=== PATIENT | male | born 2000 | race Two or more races ===

== ENCOUNTER 2020-11-10 22:16 | Emergency (ER) | payer BC ==
[~2020-11-10] VITALS: Ht 175.3 cm; Wt 115.2 kg
[2020-11-10 22:35] VITALS: BP 143/81
--- NOTE | 2020-11-10 22:39 | PHYS DOC ---
Past History Past Medical History: Bronchitis General Adult EDM: Chief Complaint: SHORTNESS OF BREATH HPI: HPI: ". I ve .. Been having this nonproductive cough for last couple weeks... 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 Pt.[employer] student on scholarship for [employer]. History of heavy tobacco and marijuana use. Recent travel from [place] to go to [place] here at [place]. Patient does have history of Covid infection in June. No history of trauma. No history of fever or chills. Patient reports that cough has been nonproductive. Has had some burning and chest after coughing episodes. No specific ill contacts. Has recently been attempting to reduce his intake of marijuana and tobacco use. Review of Systems: Review of Systems: Constitutional: Denies fever or chills Eyes: Denies change in visual acuity HENT: Denies nasal congestion or sore throat Respiratory: History of cough and wheezing Cardiovascular: Denies chest pain or edema GI: Denies abdominal pain, nausea, vomiting, bloody stools or diarrhea : Denies dysuria Musculoskeletal: Denies back pain or joint pain Integument: Denies rash Neurologic: Denies headache, focal weakness or sensory changes Endocrine: Denies polyuria or polydipsia Lymphatic: Denies swollen glands Psychiatric: Denies depression or anxiety Family History: Family History: Noncontributory to presentation Current Medications: Current Meds: See nursing for home meds Allergies: Allergies: Allergies Coded Allergies Type Severity Reaction Last Updated Verified No Known Drug Allergies 11/10/20 No Physical Exam: PE: Constitutional: Well developed, well nourished, no acute distress, non-toxic appearance. [] HENT: Normocephalic, atraumatic, bilateral external ears normal, oropharynx moist, mild postnasal drainage, no oral exudates, nose slightly swollen turbinates and clear rhinorrhea Eyes: PERRLA, EOMI, conjunctiva normal, no discharge. [] Neck: Normal range of motion, no tenderness, supple, no stridor. [] Cardiovascular:Heart rate regular rhythm, no murmur [] Bed side monitor shows a normal sinus rhythm Lungs & Thorax: Bilateral breath sounds equal apex with few scattered wheezes on auscultation [] Pt. has prominent breast development. Abdomen: Bowel sounds normal, soft, no tenderness, no masses, no pulsatile masses. [] Skin: Warm, dry, no erythema, no rash. Cap refill less than 2 seconds in fingers Back: No tenderness, no CVA tenderness. [] Extremities: No tenderness, no cyanosis, no clubbing, ROM intact, no edema. [] No cording appreciated Neurologic: Alert and oriented X 3, normal motor function, normal sensory function, no focal deficits noted. [] Psychologic: Affect anxious, judgement normal, mood normal. [] EKG: EKG: [] Radiology/Procedures: Radiology/Procedures: [][address] [address] IMAGING REPORT Signed PATIENT: KENJI LONG ACCOUNT: [id number] : 2000 LOCATION: ER AGE: 20 SEX: M EXAM STATUS: REG ER ORD. PHYSICIAN: ANGEL GAMEZ MD REASON: cough, dyspnea PROCEDURE: CHEST PA & LATERAL INDICATION: Reason: cough, dyspnea / Spl. Instructions: / History: COMPARISON: None. FINDINGS: 2 view of chest obtained. Mild degenerative changes the spine. Cardiac silhouette is unremarkable. No definite focal airspace consolidation. IMPRESSION: * No focal airspace consolidation or edema. Electronically signed by: Luz Judge MD (11/10/2020 11:13 PM) [id number] DICTATED AND SIGNED BY: LUZ JUDGE MD DATE: 11/10/20 4554 CC: ANGEL GAMEZ MD; PCP,NO ~MTH0 0 Heart Score: C/O Chest Pain: N/A HEART Score for Chest Pain: HEART Score for Chest Pain Response (Comments) Value History Slighlty/Non-Suspicious 0 ECG Normal 0 Age < 45 0 Risk Factors 1 or 2 Risk Factors 1 Total 1 Risk Factors: Risk Factors: DM, Current or recent (<one month) smoker, HTN, HLP, family history of CAD, obesity. Risk Scores: Score 0 - 3: 2.5% MACE over next 6 weeks - Discharge Home Score 4 - 6: 20.3% MACE over next 6 weeks - Admit for Clinical Observation Score 7 - 10: 72.7% MACE over next 6 weeks - Early Invasive Strategies Course & Med Decision Making: Course & Med Decision Making Pertinent Labs and Imaging studies reviewed. (See chart for details) Take prednisone 50 mg a day. Use MDI 2 puffs 4 times a day. Take Zithromax 250 a day. Follow-up primary care. Return for concerns. Patient encouraged to stop smoking both tobacco and marijuana if not for his health for the health of the significant other. Did recommend he get Covid vaccination in spite of his infection in June. Impression: 1. Bronchitis 2. Tobacco and Marijuana use. [] Dragon Disclaimer: Dragon Disclaimer: This electronic medical record was generated, in whole or in part, using a voice recognition dictation system. Departure Departure: Referrals: PCP,NO (PCP) Scripts Azithromycin (ZITHROMAX) 250 Mg Tablet 250 MG PO DAILY for ANTI-BIOTIC for 5 Days, #5 TAB 0 Refills Prov: ANGEL GAMEZ MD 11/10/20 Prednisone (PREDNISONE) 50 Mg Tablet 50 MG PO DAILY for reactive airway for 5 Days, #5 TAB Prov: ANGEL GAMEZ MD 11/10/20 Dragon Disclaimer This chart was dictated in whole or in part using Voice Recognition software in a busy, high-work load, and often noisy Emergency Department environment. It may contain unintended and wholly unrecognized errors or omissions. ANGEL GAMEZ MD November 10, 2020 22:39
[2020-11-10] MEDS ORDERED: predniSONE 10 MG TABLET PO ONE (22:45)
[2020-11-10] MEDS ORDERED: AZITHROMYCIN 250 MG TABLET. PO ONE (22:45)
[2020-11-10] MEDS ORDERED: ALBUTEROL SULFATE 8GM INHALER. INH ONE (22:45)
--- NOTE | 2020-11-10 23:16 | RAD ---
INDICATION: Reason: cough, dyspnea / Spl. Instructions: / History: COMPARISON: None. FINDINGS: 2 view of chest obtained. Mild degenerative changes the spine. Cardiac silhouette is unremarkable. No definite focal airspace c onsolidation. IMPRESSION: * No focal airspace consolidation or edema. Electronically signed by: Yehuda Judge MD (11/10/2020 11:13 PM) [id number]
[2020-11-10] MEDS ORDERED: AZIT250T PO (23:41)
[2020-11-10] MEDS ORDERED: PRED50TA PO (23:41)
== END 2020-11-11 00:03 | disposition home or self-care (01) ==
LOC: ER 22:16
DX: J40 Bronchitis, not specified as acute or chronic (principal); F17.200 Nicotine dependence, unspecified, uncomplicated; F12.90 Cannabis use, unspecified, uncomplicated
CPT/HCPCS: 71046; 94640; 99283; J7512; 94664